=== PATIENT | female | born 1960 | race Caucasian/White ===

== ENCOUNTER 2020-08-02 18:11 | Inpatient (IN) | payer MEDICAID, SELFPAY ==
[2020-08-02 18:12] VITALS: BP 137/94; PULSE 105; RESP 16; TEMP 36.4; O2SAT 98; BMI 20.7
--- NOTE | 2020-08-02 18:35 | ED.DCSUM_ITS ---
- ER Visit Summary Date of Service: 08/02/20 Chief Complaint: Requesting detox for alcohol abuse and Xanax abuse History of Present Illness: The patient is a 60 F history of anxiety depression. States she has been using Xanax for the last 2 years. She takes typically 3 Xanax a day with prescribed is try to get herself off of those. Says she drinks about half a liter of vodka every day last drink was on Friday. States she started to have shakes and get very anxious. She is never been through detox b efore. She denies any melena. Physical Examination: Middle-aged female no acute distress vital signs stable afebrile. Heart rate 105. H EENT exam unremarkable. She does have an abrasion to the bridge of her nose that she had a recent fall. There is no deformity no active bleeding. Pupils round reactive light. Scalp and posterior head is atraumatic nontender. No hematomas. C-spine nontender trachea midline. Normal range of motion. Lungs clear to auscultation bilaterally. Heart regular rhythm rate about 105 no murmur. Chest wall nontender. Abdomen soft nontender normal bowel sounds no peritoneal signs. Pelvic girdle intact. Patient is moving all 4 extremities. They are nontender. No deformity. No edema. Neurovascular intact with normal range of motion. Back nontender. Neurologically she is awake alert with no focal motor deficits. Test Results: None Emergency Department Course and Treatment: Patient requesting detox for alcoholism and Xanax abuse. I have the hospitalist on page for admission. Treatment Plan: Admission for detox. Disposition: Admission Impression: Requesting detox for alcoholism and abuse of Xanax History of anxiety and depression Fall with nasal abrasion This note was generated with [employer] dictation software. It may contain incorrect words, spelling, and punctuation that were not noted in review of the chart prior to signing
[2020-08-02 19:07] VITALS: BP 132/87; PULSE 101; RESP 18; TEMP 36.5; O2SAT 99
--- NOTE | 2020-08-02 19:15 | HP.PCM_ITS ---
Problem List (1) Alcohol withdrawal Status: Acute Qualifiers: Complication of substance-induced condition: uncomplicated Qualified Code(s): F10.230 - Alcohol dependence with withdrawal, uncomplicated History of Present Illness Date of Admission: 08/02/20 Chief Complaint: alcohol withdrawal The patient is a 60 year old F who drinks a half a liter of vodka per day as well as taking Xanax 3 times per day. Patient has been established with physician and few days ago cut back her Xanax to 1-1/2tablets daily down for 3 tablets that she was on before. Patient's last drink was Friday and since then has been having tremors, headache and nausea. She saw her addiction counselor who advised her to come to [facility] for further withdrawal treatment. [] Past Medical History Medical History: Medical History (Last Updated 08/02/20 @ 19:[address] Galen Kelly, ) Anxiety F41.9 Allergies lorazepam [From Ativan] Allergy (Verified 08/02/20 18:14) NEEDS FOLLOW-UP Home Medications: Ambulatory Orders Medication Instructions Recorded Alprazolam [Xanax] 1 mg PO TID PRN 08/02/20 Fluoxetine HCl [Prozac] 60 mg PO DAILY 08/02/20 Smoking Status: Light Smoker (<10/day) Tobacco Use: Cigarettes Alcohol: Heavy Drugs: None - *Family History Sibling History Items: - - Brother is an alcoholic Review of Systems Constitutional: Denies: Anorexia, Chills, Fever Eyes: Denies: Blurred vision, Double vision HEENT: Denies: Head Aches, Sinus Congestion, Sinus Drainage Cardiovascular: Denies: Chest Pain, Palpitations Respiratory: Denies: Cough, Shortness of breath at rest, Sputum production Gastrointestinal: Reports: Nausea. Denies: Vomiting Comment: All review of systems were negative except as mentioned above in the history of present illness and the other review of systems. VTE Information - Inpt Only VTE Present on Admission: No VTE Mechan Device Prophylaxis: None VTE Pharm Prophylaxis ordered?: No Reason prophylaxis not ordered:: Treatment Not Indicated - Physical Exam Vitals/I&O's: Vital Signs Temp Pulse Resp BP Pulse Ox 36.5 C L 101 H 18 132/87 H 99 08/02/20 19:07 08/02/20 19:07 08/02/20 19:07 08/02/20 19:07 08/02/20 19:07 Oxygen Delivery Method Room Air Weight: 56.699 kg Body Mass Index (BMI) 20.7 General: Alert, No apparent distress HEENT: Atraumatic, Normocephalic Oral: Moist Mucosa, No Gingival or Mucosal Lesions/ Ulcerations Neck: No Nodes, Thyroid Normal Size and Texture Lungs: Clear to auscultation, Normal air movement, No rhonchi, No wheeze, No rales Cardiovascular: Regular rate, Regular Rhythm, Normal S1, Normal S2, No murmurs Abdomen: Bowel Sounds Present, Soft, Non Tender, Non-Distended, No Hepato- splenomegaly Extremities: No edema, No Calf Tenderness Skin: No rashes, No breakdown Psych/Mental Status: Normal Affect, Appropriate Assessment/Plan All Active Problems Alcohol withdrawal (Acute) 1. Acute alcohol withdrawal: Patient with a CIWA score of 5. Additionally, patient last drink was roughly 48 hours ago so my suspicion for her going through acute severe alcohol withdrawal is fairly low. She does endorse that she drinks large quantity of alcohol so we will initiate a phenobarbital taper. I would expect her to necessary need to complete the taper before she can be discharged if she is looking stable. Patient already has a outpatient program that she will be following up with upon discharge. 2. Benzodiazepine withdrawal: Patient is already established with a provider who is providing her medications. Patient was on alprazolam 1 mg 3 times daily and it is 1-1/2tablets during the day. Will continue with her regimen and and have her follow-up with her provider for further taper. She was just initiated on this to drop in her alprazolam a few days ago so during the course of her hospitalization she would continue with that regimen and then following up with her provider for further decrease in her alprazolam. 3. Anxiety: Complicates her overall long-term recovery. Continue with fluoxetine 4. VTE prophylaxis: Not indicated as patient is low risk. Inpatient E&M: 44795 Init Hosp L2
[2020-08-02 19:36] VITALS: BP 149/100; PULSE 92; RESP 18; TEMP 37.1; O2SAT 100; BMI 20.9
[2020-08-02 19:44] VITALS: BMI 20.9
[2020-08-02 20:31] LABS: Absolute Lymphocyte Count 4.56 X10^3/uL (0.83-4.51); Absolute Neutrophil Count 5.1 X10^3/uL (2.0-7.7); Basophil# 0.03 X10^3/uL; Basophil% 0.3 % (0-1); Eosinophil# 0.07 X10^3/uL; Eosinophils% 0.7 % (0-5); Hematocrit 39.2 % (37-47); Hemoglobin 12.8 g/dL (12.0-15.0); Lymphocyte # 4.56 X10^3/ul (4.0); Mean Corp Hgb Conc 32.7 g/dL (32-36); Mean Corpuscular Hgb 29.7 pg (27.0-32.0); Mean Platelet Vol. 9.7 fl (6.2-12.0); Monocyte# 0.56 X10^3/uL; Monocyte% 5.4 % (0-10); NRBC Flagged by Analyzer 0 % (0-5); Neutrophil # 5.12 X10^3/uL (2.7-7.7); Neutrophil % 49.4 % (47-70); Platelet Count 401 K/mm3 (150-450); RBC Distribution Width CV 15.9 % (11.6-14.6); RBC Distribution Width SD 53.2 fl (35.1-43.9); Red Blood Count 4.31 M/mm3 (4.2-5.4); White Blood Count 10.4 K/mm3 (4.4-11.0)
[2020-08-02 20:48] LABS: ALB/GLOB Ratio 0.7 RATIO (0.9-2.4); AST(SGOT) 29 U/L (15-37); Alanine Aminotransfer ALT/SGPT 48 U/L (13-56); Albumin, Serum 3.1 g/dL (3.2-5.0); Alkaline Phosphatase 132 U/L (45-117); Anion Gap 7 (5-15); BUN 10 mg/dL (7-18); BUN/Creat Ratio 10.6 RATIO (10-20); Calcium,Total 9.6 mg/dL (8.5-10.1); Chloride 108 mmol/L (98-107); Creatinine, Serum 0.94 mg/dL (0.55-1.02); EST Glomerular Filtration Rate 65 mL/min (>60); Est Glom Filt Rate - Afr Amer 78 mL/min (>60); Estimated Creatinine Clearance 57.27 ml/min; Globulin 4.5 g/dL (2.2-4.2); Glucose 92 mg/dL (74-106); Potassium 3.4 mmol/L (3.5-5.1); Protein, Total 7.6 g/dL (6.4-8.2); Sodium Level 143 mmol/L (136-145)
[2020-08-02] MEDS: ALPRAZolam 0.5 MG Tablet PO (21:40)
[2020-08-02] MEDS: Phenobarbital 32.4 MG Tablet 64.8 MG PO (21:40)
[2020-08-03] MEDS: Phenobarbital 32.4 MG Tablet 64.8 MG PO ×6 (00:34→20:42)
[2020-08-03 00:36] VITALS: BP 113/62; PULSE 78; RESP 16; TEMP 36.6; O2SAT 98
[2020-08-03 04:29] VITALS: BP 120/76; PULSE 82; RESP 18; TEMP 36.5; O2SAT 99
--- NOTE | 2020-08-03 07:21 | PN_ITS ---
Patient Problems: Active and Suspected Problems (Last Updated 08/02/20 @ 19:[address] Galen Kelly, DO) Alcohol withdrawal (Acute) Reason for Visit: Follow-up on acute alcohol withdrawal Subjective: Patient was seen and examined. She feels much improved. No acute events. Objective: Physical exam: General: Alert, oriented x3, no apparent distress, appears comfortable HEENT: Atraumatic, Normocephalic Oral: Moist Mucosa, No Gingival or Mucosal Lesions/ Ulcerations Neck: No Nodes, Thyroid Normal Size and Texture Lungs: Clear to auscultation, Normal air movement, No rhonchi, No wheeze, No rales Cardiovascular: Regular rate, Regular Rhythm, Normal S1, Normal S2, No murmurs Abdomen: Bowel Sounds Present, Soft, Non Tender, Non-Distended, No Hepato- splenomegaly Extremities: No edema, No Calf Tenderness Skin: No rashes, No breakdown Psych/Mental Status: Normal Affect, Appropriate Vitals/I&O's: Vital Signs Temp Pulse Resp BP Pulse Ox 97.7 F L 82 18 120/76 99 08/03/20 04:29 08/03/20 04:29 08/03/20 04:29 08/03/20 04:29 08/03/20 04:29 Oxygen Delivery Method Room Air Weight: 57.1 kg Body Mass Index (BMI) 20.9 Intake and Output for Last 24 Hours 08/01/20 08/02/20 08/03/20 23:59 23:59 23:59 Intake Total 600 / 600 Balance 600 / 600 Laboratory Results 08/02/20 20:22: WBC 10.4, RBC 4.31, Hgb 12.8, Hct 39.2, MCV 91.0, MCH 29.7, MCHC 32.7, RDW Std Deviation 53.2 H, RDW Coeff of Santa 15.9 H, Plt Count 401, MPV 9.7, Immature Gran % (Auto) 0.200, Neut % (Auto) 49.4, Lymph % (Auto) 44.0 H, Mil[place] % (Auto) 5.4, Eos % (Auto) 0.7, Baso % (Auto) 0.3, Absolute Neuts (auto) 5.1, Absolute Lymphs (auto) 4.56 H, Nucleated RBC % 0 11/11/20 20:22: Sodium 143, Potassium 3.4 L, Chloride 108 H, Carbon Dioxide 28.0, Anion Gap 7, BUN 10, Creatinine 0.94, Estim Creat Clear Calc 57.27, Est GFR (MDRD) Af Amer 78, Est GFR (MDRD) Non-Af 65, BUN/Creatinine Ratio 10.6, Glucose 92, Calcium 9.6, Total Bilirubin 0.50, AST 29, ALT 48, Alkaline Phosphatase 132 H, Total Protein 7.6, Albumin 3.1 L, Globulin 4.5 H, Albumin/Globulin Ratio 0.7 L Current Medications Acetaminophen (Acetaminophen 500 Mg Tablet) 500 mg PO Q4H PRN PRN PRN Reason: Temp > 100.4 F Alprazolam (Alprazolam 0.5 Mg Tablet) 1 mg PO QAM [facility] Alprazolam (Alprazolam 0.5 Mg Tablet) 0.5 mg PO QPM [facility] Last Admin: 08/02/20 21:40 Dose: 0.5 mg Documented by: Dicyclomine HCl (Dicyclomine 10 Mg Capsule) 20 mg PO Q6H PRN PRN PRN Reason: abdominal discomfort Fluoxetine HCl (Fluoxetine 20 Mg Capsule) 60 mg PO DAILY [facility] Folic Acid (Folic Acid 1 Mg Tablet) 1 mg PO DAILY@0800 [facility] Gabapentin (Gabapentin 300 Mg Capsule) 300 mg PO Q8H PRN PRN PRN Reason: moderate to severe anxiety Hydroxyzine Pamoate (Hydroxyzine Rhonda 25 Mg Capsule) 50 mg PO Q4H PRN PRN PRN Reason: mild anxiety Ibuprofen (Ibuprofen 600 Mg Tablet) 600 mg PO Q8H PRN PRN PRN Reason: Pain Score 1-10 Loperamide HCl (Loperamide 2 Mg Capsule) 2 mg PO Q4H PRN PRN PRN Reason: LOOSE STOOLS Nicotine (Nicotine 21 Mg Patch) 21 mg TRANSDERM. DAILY [facility] Ondansetron HCl (Ondansetron 8 Mg Tablet) 8 mg PO Q8H PRN PRN PRN Reason: NAUSEA Phenobarbital (Phenobarbital 32.4 Mg Tablet) 97.2 mg PO Q4H [facility]; Taper Stop: 08/07/20 04:14 Last Admin: 08/03/20 04:31 Dose: 97.2 mg Documented by: Potassium Chloride (Potassium Chloride 20 Meq Tablet) 40 meq PO X1 ONE Stop: 08/03/20 07:20 Sodium Chloride (0.9% Saline Lock 10 Ml Syringe) 10 - 40 ml IV UD PRN PRN Reason: SALINE FLUSH Thiamine HCl (Thiamine Hydrochloride 100 Mg Tablet) 100 mg PO DAILYCM [facility] Trazodone HCl (Trazodone 100 Mg Tablet) 100 mg PO QHS PRN PRN Reason: INSOMNIA STROKE Vital Signs/Narrative: Vital Signs Temp Pulse Resp BP Pulse Ox 08/03/20 04:29 97.7 F L 82 18 120/76 99 Medical Necessity - Tobacco Use Smoking Status: Light Smoker (<10/day) Tobacco Use: Cigarettes Assessment/Plan All Active Problems (Last Updated 08/02/20 @ 19:[address] Galen Kelly, DO) Alcohol withdrawal (Acute) 1. Acute alcohol withdrawal, CIWA score this morning was 6 Patient continues to require medication and monitoring for withdrawal based on regular assessment and remains appropriate for ASAM level 4.0 Continue on phenobarb withdrawal protocol 2. Acute benzodiazepine withdrawal, continue on withdrawal protocol 3. Hypokalemia, replaced recheck in a.m. 4. Anxiety disorder, continue on Prozac and Xanax 5. DVT PPx-low ambulation, early ambulation advised Inpatient E&M: 43563 Subs Hosp L2
[2020-08-03 07:33] LABS: Magnesium 2.1 mg/dL (1.6-2.6)
[2020-08-03] MEDS: Thiamine Hydrochloride 100 MG Tablet PO (08:19)
[2020-08-03] MEDS: Folic Acid 1 MG Tablet PO (08:19)
[2020-08-03 08:24] VITALS: BP 121/68; PULSE 91; RESP 18; TEMP 36.8; O2SAT 99
[2020-08-03] MEDS: ALPRAZolam 0.5 MG Tablet PO ×2 (10:05→20:41)
[2020-08-03] MEDS: FLUoxetine 20 MG Capsule 60 MG PO (10:05)
--- NOTE | 2020-08-03 11:18 | CASEMGMT ---
Social Work Note Pt is RAMP pt. SW placed a call to treatment navigator and left message that pt will need to be seen. Yasmine John GRINDER LAP, PUBLIC SAFETY OFFICER
[2020-08-03 15:01] VITALS: BP 130/74; PULSE 90; RESP 18; TEMP 36.7; O2SAT 99
[2020-08-03] MEDS: Gabapentin 300 MG Capsule PO (16:53)
[2020-08-03 20:34] VITALS: BP 112/68; PULSE 67; RESP 16; TEMP 36.8; O2SAT 98
[2020-08-04 00:19] VITALS: BP 107/65; PULSE 65; RESP 16; TEMP 36.5; O2SAT 97
[2020-08-04] MEDS: Phenobarbital 32.4 MG Tablet 64.8 MG PO ×6 (00:22→20:17)
[2020-08-04 04:38] VITALS: BP 112/61; PULSE 72; RESP 16; TEMP 36.7; O2SAT 97
[2020-08-04] MEDS: 0.9% Saline Lock 10 ML Syringe IV (04:41)
[2020-08-04 06:30] LABS: Absolute Neutrophil Count 4.2 X10^3/uL (2.0-7.7); Basophil# 0.03 X10^3/uL; Basophil% 0.3 % (0-1); Eosinophil# 0.19 X10^3/uL; Eosinophils% 2.1 % (0-5); Hematocrit 37.9 % (37-47); Lymphocyte % 45.6 % (19-41); Mean Corp Hgb Conc 31.7 g/dL (32-36); Mean Corpuscular Hgb 29.2 pg (27.0-32.0); Mean Corpuscular Volume 92.2 fL (81-99); Mean Platelet Vol. 9.8 fl (6.2-12.0); Monocyte# 0.59 X10^3/uL; Monocyte% 6.4 % (0-10); NRBC Flagged by Analyzer 0 % (0-5); Neutrophil # 4.18 X10^3/uL (2.7-7.7); Neutrophil % 45.4 % (47-70); Platelet Count 358 K/mm3 (150-450); RBC Distribution Width CV 15.6 % (11.6-14.6); Red Blood Count 4.11 M/mm3 (4.2-5.4); White Blood Count 9.2 K/mm3 (4.4-11.0)
[2020-08-04 06:44] LABS: ALB/GLOB Ratio 0.7 RATIO (0.9-2.4); AST(SGOT) 24 U/L (15-37); Alanine Aminotransfer ALT/SGPT 37 U/L (13-56); Albumin, Serum 2.7 g/dL (3.2-5.0); Alkaline Phosphatase 115 U/L (45-117); Anion Gap 4 (5-15); BUN 16 mg/dL (7-18); BUN/Creat Ratio 17.5 RATIO (10-20); Calcium,Total 8.9 mg/dL (8.5-10.1); Chloride 108 mmol/L (98-107); Creatinine, Serum 0.91 mg/dL (0.55-1.02); EST Glomerular Filtration Rate 67 mL/min (>60); Est Glom Filt Rate - Afr Amer 81 mL/min (>60); Estimated Creatinine Clearance 59.16 ml/min; Globulin 4.1 g/dL (2.2-4.2); Glucose 79 mg/dL (74-106); Potassium 4.1 mmol/L (3.5-5.1); Protein, Total 6.8 g/dL (6.4-8.2); Sodium Level 140 mmol/L (136-145)
--- NOTE | 2020-08-04 07:21 | PCM.PN.HOSP ---
Patient Problems: Active and Suspected Problems (Last Updated 08/02/20 @ 19:[address] Galen Kelly, DO) Alcohol withdrawal (Acute) Reason for Visit: Follow-up on acute alcohol withdrawal Subjective: Patient was seen and examined. No acute events. She feels much improved. Denied any diarrhea or nausea or tremors. Objective: Physical exam: General: Alert, oriented x3, no apparent distress, appears comfortable HEENT: Atraumatic, Normocephalic Oral: Moist Mucosa, No Gingival or Mucosal Lesions/ Ulcerations Neck: No Nodes, Thyroid Normal Size and Texture Lungs: Clear to auscultation, Normal air movement, No rhonchi, No wheeze, No rales Cardiovascular: Regular rate, Regular Rhythm, Normal S1, Normal S2, No murmurs Abdomen: Bowel Sounds Present, Soft, Non Tender, Non-Distended, No Hepato-splenomegaly Extremities: No edema, No Calf Tenderness Skin: No rashes, No breakdown Psych/Mental Status: Normal Affect, Appropriate Vitals/I&O's: Vital Signs Temp Pulse Resp BP Pulse Ox 98.0 F 72 16 112/61 97 08/04/20 04:38 08/04/20 04:38 08/04/20 04:38 08/04/20 04:38 08/04/20 04:38 Oxygen Delivery Method Room Air Weight: 57.1 kg Body Mass Index (BMI) 20.9 Intake and Output for Last 24 Hours 08/02/20 08/03/20 08/04/20 23:59 23:59 23:59 Intake Total 1400 / 1400 700 / 700 Balance 1400 / 1400 700 / 700 Laboratory Results 08/02/20 20:22: Magnesium 2.1 08/04/20 06:04: WBC 9.2, RBC 4.11 L, Hgb 12.0, Hct 37.9, MCV 92.2, MCH 29.2, MCHC 31.7 L, RDW Std Deviation 53.0 H, RDW Coeff of Santa 15.6 H, Plt Count 358, MPV 9.8, Immature Gran % (Auto) 0.200, Neut % (Auto) 45.4 L, Lymph % (Auto) 45.6 H, Placer % (Auto) 6.4, Eos % (Auto) 2.1, Baso % (Auto) 0.3, Absolute Neuts (auto) 4.2, Absolute Lymphs (auto) 4.20, Nucleated RBC % 0 08/04/20 06:04: Sodium 140, Potassium 4.1, Chloride 108 H, Carbon Dioxide 28.0, Anion Gap 4 L, BUN 16, Creatinine 0.91, Estim Creat Clear Calc 59.16, Est GFR (MDRD) Af Amer 81, Est GFR (MDRD) Non-Af 67, BUN/Creatinine Ratio 17.5, Glucose 79, Calcium 8.9, Total Bilirubin 0.50, AST 24, ALT 37, Alkaline Phosphatase 115, Total Protein 6.8, Albumin 2.7 L, Globulin 4.1, Albumin/Globulin Ratio 0.7 L Current Medications Acetaminophen (Acetaminophen 500 Mg Tablet) 500 mg PO Q4H PRN PRN PRN Reason: Temp > 100.4 F Alprazolam (Alprazolam 0.5 Mg Tablet) 0.5 mg PO TID PRN PRN PRN Reason: ANXIETY Last Admin: 08/03/20 20:41 Dose: 0.5 mg Documented by: Dicyclomine HCl (Dicyclomine 10 Mg Capsule) 20 mg PO Q6H PRN PRN PRN Reason: abdominal discomfort Fluoxetine HCl (Fluoxetine 20 Mg Capsule) 60 mg PO DAILY [facility] Last Admin: 08/03/20 10:05 Dose: 60 mg Documented by: Folic Acid (Folic Acid 1 Mg Tablet) 1 mg PO DAILY@0800 [facility] Last Admin: 08/03/20 08:19 Dose: 1 mg Documented by: Gabapentin (Gabapentin 300 Mg Capsule) 300 mg PO Q8H PRN PRN PRN Reason: moderate to severe anxiety Last Admin: 08/03/20 16:53 Dose: 300 mg Documented by: Hydroxyzine Pamoate (Hydroxyzine Rhonda 25 Mg Capsule) 50 mg PO Q4H PRN PRN PRN Reason: mild anxiety Ibuprofen (Ibuprofen 600 Mg Tablet) 600 mg PO Q8H PRN PRN PRN Reason: Pain Score 1-10 Loperamide HCl (Loperamide 2 Mg Capsule) 2 mg PO Q4H PRN PRN PRN Reason: LOOSE STOOLS Nicotine (Nicotine 21 Mg Patch) 21 mg TRANSDERM. DAILY [facility] Last Admin: 08/03/20 10:04 Dose: Not Given Documented by: Ondansetron HCl (Ondansetron 8 Mg Tablet) 8 mg PO Q8H PRN PRN PRN Reason: NAUSEA Phenobarbital (Phenobarbital 32.4 Mg Tablet) 64.8 mg PO Q4H [facility]; Taper Stop: 08/07/20 04:14 Last Admin: 08/04/20 04:41 Dose: 64.8 mg Documented by: Sodium Chloride (0.9% Saline Lock 10 Ml Syringe) 10 - 40 ml IV UD PRN PRN Reason: SALINE FLUSH Last Admin: 08/04/20 04:41 Dose: 10 ml Documented by: Thiamine HCl (Thiamine Hydrochloride 100 Mg Tablet) 100 mg PO DAILYCM [facility] Last Admin: 08/03/20 08:19 Dose: 100 mg Documented by: Trazodone HCl (Trazodone 100 Mg Tablet) 100 mg PO QHS PRN PRN Reason: INSOMNIA STROKE Vital Signs/Narrative: Vital Signs Temp Pulse Resp BP Pulse Ox 08/04/20 04:38 98.0 F 72 16 112/61 97 Medical Necessity - Tobacco Use Smoking Status: Light Smoker (<10/day) Tobacco Use: Cigarettes Assessment/Plan All Active Problems (Last Updated 08/02/20 @ 19:[address] Galen Kelly, DO) Alcohol withdrawal (Acute) 1. Acute alcohol withdrawal, CIWA score is 6 Patient continues to require medication and monitoring for withdrawal based on regular assessment and remains appropriate for ASAM level 4.0 Continue on phenobarbital withdrawal protocol 2. Acute benzodiazepine withdrawal, continue on withdrawal protocol 3. Hypokalemia, replaced recheck in a.m. 4. Anxiety disorder, continue on Prozac and Xanax 5. DVT PPx-low ambulation, early ambulation advised Inpatient E&M: 19483 Subs Hosp L2
[2020-08-04 08:58] VITALS: BP 101/62; PULSE 87; RESP 18; TEMP 36.6; O2SAT 99
[2020-08-04] MEDS: FLUoxetine 20 MG Capsule 60 MG PO (09:00)
[2020-08-04] MEDS: Thiamine Hydrochloride 100 MG Tablet PO (09:00)
[2020-08-04] MEDS: Folic Acid 1 MG Tablet PO (09:00)
[2020-08-04] MEDS: ALPRAZolam 0.5 MG Tablet PO (09:04)
--- NOTE | 2020-08-04 09:50 | NURSING ---
This Nurse had a phone call from patients son Bony. Bony is not on the list of contacts for this patient so [facility] went in and asked pt if it was okay to release information over the phone to Bony. Pt agreed it was okay. Son Bony is concerned about mother going home as Step Father told patients son's that patient had been weaned off of Xanax when she really had not been. Bony states that his mother just recently started drinking and that being addicted to the xanax is more the problem then the drinking. My Step Father is enabling her and my brother and I are afraid that if she goes back home there wont be anyone there to regulate her medicine. This nurse informed him that 180 will come see patient today and formulate a plan and that Dr. Jeong plans on keeping pt another day. Yasmine GÓMEZ is aware of the phone call between this nurse and patients son.
--- NOTE | 2020-08-04 10:11 | CASEMGMT ---
Social Work Note DALIA placed a call to treatment navigator and spoke with Harlan. Harlan states she attempted to see pt yesterday. DALIA updated Harlan that pt's son had phoned in with concerns of pt returning home and wanting residential for pt. Harlan states she will relay message to Britton who will be in to see pt today. Yasmine John BOARD STACKER, DIGITAL ASSET SPECIALIST
--- NOTE | 2020-08-04 12:37 | NURSING ---
This nurse spoke with Britton from [facility] whom had just gone in and talked with pt. Pt has appointment to follow up next week with [place] Counselor [place]. This nurse spoke with Britton about what this nurse and Son, Bony spoke about earlier this morning. Britton stated that pt said that we (hospital staff) were weaning her off the xanax. This nurse informed Britton that Xanax is ordered TID prn and given this morning on pt's request d/t moderate anxiety. This nurse in to talk to pt to clarify if she wanted to be weaned off of xanax as well. Well they are only giving it to me twice a day as needed. This pt did not inform her that she has it ordered TID. This nurse asked pt how she takes it at home and pt said twice a day scheduled not prn. Pt did not seem interested in being weaned from the xanax but only taking it on a prn basis.
--- NOTE | 2020-08-04 13:27 | CASEMGMT ---
Social Work Note SW received call from [facility] ([place], [place]) requesting update on pt's discharge plan. SW spoke with pt about received call. Pt signed release of information for [facility]. DALIA spoke with Gisell Hull at [facility] and provided update that per notes, pt will be following up as an outpatient with her counselor. Gisell states understanding. Yasmine John HAZARDOUS SUBSTANCES SCIENTIST, PRIVACY MANAGER
[2020-08-04 15:48] VITALS: BP 130/72; PULSE 85; RESP 16; TEMP 37.3; O2SAT 97
[2020-08-04] MEDS: Gabapentin 300 MG Capsule PO (16:00)
--- NOTE | 2020-08-04 17:02 | CASEMGMT ---
Addendum entered by Yasmine John 08/04/20 17:50: DALIA had received message from Gisell at [facility] requesting that this worker call pt's son Patrick to update on discharge plan. DALIA in to speak with pt. SW updated pt that [facility] requested that this worker call pt's son Patrick to update on discharge plan. Pt states she thinks Patrick already knows the plan but gave this worker permission to call her son Patrick to provide an update. SW placed a call to pt's on Patrick and provided update. Patrick states he was aware that pt will be discharged home tomorrow and that pt has an appointment with her counselor next week. Original Note: Social Work Note DALIA updated by charge nurse that Fcosanto from [facility] stating they are wanting pt to admit to residential and that pt could admit to [facility] or [place] [facility] next week and requests pt stay at [facility] until Friday. DALIA informed charge nurse that this worker was under the impression pt was just going to do outpatient counseling and not residential. DALIA in to speak with pt. SW updated pt that Gisell from [facility] is wanting pt to admit to residential in either [facility] or [place]. Pt states she is not agreeable to residential and will not be going to residential. Pt states that he will do outpatient counseling and she feels that is the level of care that she needs at this time. DALIA asked pt about detox from Xanax and pt states just titrate it, just as needed. DALIA updated charge nurse that pt is refusing residential and about pt's comments regarding detox from Xanax. Yasmnie John SPORTS PHYSIOTHERAPIST, DOOR LINER
[2020-08-04 22:20] VITALS: BP 119/63; PULSE 82; RESP 16; TEMP 36.8; O2SAT 98
[2020-08-05] MEDS: Phenobarbital 32.4 MG Tablet 64.8 MG PO ×3 (00:32→10:07)
[2020-08-05 08:15] VITALS: BP 103/71; PULSE 90; RESP 18; TEMP 36.9; O2SAT 99
[2020-08-05] MEDS: Folic Acid 1 MG Tablet PO (08:19)
[2020-08-05] MEDS: Thiamine Hydrochloride 100 MG Tablet PO (08:19)
[2020-08-05 09:22] VITALS: BP 120/65; PULSE 74; RESP 18; TEMP 36.7; O2SAT 97
--- NOTE | 2020-08-05 09:24 | DCINST_ITS ---
- Discharge Diagnoses Current Active Problems: Current Active and Chronic Problems (Last Updated 08/02/20 @ 19:[address] Galen Kelly DO) Alcohol withdrawal (Acute) Reason(s) for Visit for Discharge Instructions: Acute alcohol withdrawal You will use the following diet at home:: Regular Your liquids should be the consistency of: Regular/Thin Discharge Activity: Return to Normal Activity Additional Instructions: You are strongly advised to avoid alcohol and to quit smoking. Follow-up with your outpatient counselling as scheduled. You can take a multivitamin pill daily. You need repeat blood work within a week to follow-up on your kidney function. Follow-up with your primary care doctor within 2 weeks. Allergies/Adverse Reactions: Allergies lorazepam [From Ativan] Allergy (Verified 08/02/20 18:14) NEEDS FOLLOW-UP Medications to take at Discharge Alprazolam [Xanax] 0.5 mg PO TID PRN 08/02/20 Fluoxetine HCl [Prozac] 60 mg PO DAILY 08/02/20 Hydroxyzine Pamoate [Vistaril] 50 mg PO TID PRN PRN 08/02/20 Primary Care Physician: MICHAEL MALDONADO [Other] Please follow up with your Primary Care Physician in: within 2 weeks Test Results: Test results from this visit will be discussed in further detail at your follow- up appointment, if applicable. Proposed Discharge Date: 08/05/20
--- NOTE | 2020-08-05 09:26 | DS.PCM_ITS ---
Discharge Date and Diagnosis - Problem List Patient Problems: Active and Suspected Problems (Last Updated 08/02/20 @ 19:[address] Galen Kelly DO) Alcohol withdrawal (Acute) Date of Admission: 08/02/20 Date of Discharge: 08/05/20 - Primary Discharge Diagnosis Acute Problems: Active Problems (Last Updated 08/02/20 @ 19:[address] Galen Kelly DO) Acute alcohol withdrawal Acute benzodiazepine withdrawal Hypokalemia Hospital Course and Treatment Operations: None Procedures: None Summary of Care Provided: The patient is a 60 year old F with past medical history of chronic alcohol use disorder as well as chronic benzos that comes in with acute alcohol withdrawal for medical stabilization. Patient drinks about half a liter of vodka every day and takes Xanax 3 times a day. Her primary care doctor had cut her down to 1/2 tablets daily. She was admitted to the [facility] floor, monitored on the phenobarbital withdrawal protocol. Her Xanax was continued. She continued to do well. Denied any new complaints. She was subsequently discharged to follow- up with 180 in the outpatient. She was strongly advised to quit drinking and smoking. Patient Problems: Active and Suspected Problems (Last Updated 08/02/20 @ 19:[address] Galen Kelly DO) Alcohol withdrawal (Acute) Subjective: On the day of discharge, patient was seen and examined. Denied any new complaints. No acute events overnight. Objective: Physical exam: General: Alert, oriented x3, no apparent distress, appears comfortable HEENT: Atraumatic, Normocephalic Oral: Moist Mucosa, No Gingival or Mucosal Lesions/ Ulcerations Neck: No Nodes, Thyroid Normal Size and Texture Lungs: Clear to auscultation, Normal air movement, No rhonchi, No wheeze, No rales Cardiovascular: Regular rate, Regular Rhythm, Normal S1, Normal S2, No murmurs Abdomen: Bowel Sounds Present, Soft, Non Tender, Non-Distended, No Hepato-splenomegaly Extremities: No edema, No Calf Tenderness Skin: No rashes, No breakdown Psych/Mental Status: Normal Affect, Appropriate - Physical Exam Vitals/I&O's: Vital Signs Temp Pulse Resp BP Pulse Ox 98.4 F 90 18 103/71 99 08/05/20 08:15 08/05/20 08:15 08/05/20 08:15 08/05/20 08:15 08/05/20 08:15 Oxygen Delivery Method Room Air Weight: 57.1 kg Body Mass Index (BMI) 20.9 Intake and Output for Last 24 Hours 08/03/20 08/04/20 08/05/20 23:59 23:59 23:59 Intake Total 1400 / 1400 1300 / 1650 600 / 600 Balance 1400 / 1400 1300 / 1650 600 / 600 Current Medications Acetaminophen (Acetaminophen 500 Mg Tablet) 500 mg PO Q4H PRN PRN PRN Reason: Temp > 100.4 F Alprazolam (Alprazolam 0.5 Mg Tablet) 0.5 mg PO TID PRN PRN PRN Reason: ANXIETY Last Admin: 08/04/20 09:04 Dose: 0.5 mg Documented by: Dicyclomine HCl (Dicyclomine 10 Mg Capsule) 20 mg PO Q6H PRN PRN PRN Reason: abdominal discomfort Fluoxetine HCl (Fluoxetine 20 Mg Capsule) 60 mg PO DAILY [facility] Last Admin: 08/04/20 09:00 Dose: 60 mg Documented by: Folic Acid (Folic Acid 1 Mg Tablet) 1 mg PO DAILY@0800 [facility] Last Admin: 08/05/20 08:19 Dose: 1 mg Documented by: Gabapentin (Gabapentin 300 Mg Capsule) 300 mg PO Q8H PRN PRN PRN Reason: moderate to severe anxiety Last Admin: 08/04/20 16:00 Dose: 300 mg Documented by: Hydroxyzine Pamoate (Hydroxyzine Rhonda 25 Mg Capsule) 50 mg PO Q4H PRN PRN PRN Reason: mild anxiety Ibuprofen (Ibuprofen 600 Mg Tablet) 600 mg PO Q8H PRN PRN PRN Reason: Pain Score 1-10 Loperamide HCl (Loperamide 2 Mg Capsule) 2 mg PO Q4H PRN PRN PRN Reason: LOOSE STOOLS Nicotine (Nicotine 21 Mg Patch) 21 mg TRANSDERM. DAILY [facility] Last Admin: 08/05/20 08:19 Dose: Not Given Documented by: Ondansetron HCl (Ondansetron 8 Mg Tablet) 8 mg PO Q8H PRN PRN PRN Reason: NAUSEA Phenobarbital (Phenobarbital 32.4 Mg Tablet) 64.8 mg PO Q6H [facility]; Taper Stop: 08/07/20 04:14 Last Admin: 08/05/20 04:33 Dose: 64.8 mg Documented by: Sodium Chloride (0.9% Saline Lock 10 Ml Syringe) 10 - 40 ml IV UD PRN PRN Reason: SALINE FLUSH Last Admin: 08/04/20 04:41 Dose: 10 ml Documented by: Thiamine HCl (Thiamine Hydrochloride 100 Mg Tablet) 100 mg PO DAILYCM [facility]NOR Last Admin: 08/05/20 08:19 Dose: 100 mg Documented by: Trazodone HCl (Trazodone 100 Mg Tablet) 100 mg PO QHS PRN PRN Reason: INSOMNIA Discharge Diet: No Restrictions Discharge Activity: Return to Normal Activity Home Medications: Medications to take at Discharge Alprazolam [Xanax] 0.5 mg PO TID PRN 08/02/20 Fluoxetine HCl [Prozac] 60 mg PO DAILY 08/02/20 Hydroxyzine Pamoate [Vistaril] 50 mg PO TID PRN PRN 08/02/20 Primary Care Physician: MICHAEL MALDONADO [Other] Please follow up with your Primary Care Physician in: within 2 weeks Disposition: Home Minutes spent on discharge:: 40 Patient Condition:: Stable Medical Necessity - Tobacco Use Smoking Status: Light Smoker (<10/day) Tobacco Use: Cigarettes Meaningful Use Info Meaningful Use Diagnoses (Choose all that apply): None applicable Inpatient E&M: 98453 Disch Hosp
[2020-08-05] MEDS: FLUoxetine 20 MG Capsule 60 MG PO (10:07)
--- NOTE | 2020-08-05 10:14 | NURSING ---
pt's son called in. permission verbally obtained from patient to update son. Son was informed of plan to discharge and reviewing discharge w/patient now. Pt permitted to talk w/ son using this nurse's work phone to arrange transport. discharge information given and iv removed. pt's belongings we unlocked from tub
--- NOTE | 2020-08-05 10:33 | NURSING ---
pt's son Virgilio called in requesting to discuss patient, verbal permission obtained from patient to update son virgilio. Virgilio informed patient has been discharged and is awaiting a ride. informed Virgilio that since patient has recieved her discharge order and instructions she has reobtained her personal belongings including her cellphone. Virgilio expressed concern regarding patient's use or miss use of xanax prior to admission. discharge instructions from Dr. Jeong including the continuation of xanax TID PRN reviewed with pt's son Virgilio as had been discussed with patient. Pt's son denies all further needs and requests that this nurse relay to patient his affection and one of her other family members would be picking her up. This information was relayed to the patient.
== END 2020-08-05 11:25 | disposition home or self-care (01) | DRG 775 ==
LOC: ED 18:50 → MS3 20:05
PROVIDERS: Emergency Provider Emergency Medicine; Visit Provider Internal Medicine
DX: F10.230 Alcohol dependence with withdrawal, uncomplicated (principal); F13.239 Sedative, hypnotic or anxiolytic dependence with withdrawal, unspecified; E87.6 Hypokalemia; F17.210 Nicotine dependence, cigarettes, uncomplicated; Z79.899 Other long term (current) drug therapy; F41.9 Anxiety disorder, unspecified
CPT/HCPCS: 36415; 80053; 83735; 85025; 99283; A4216